=== PATIENT | male | born 1965 | race African-American/Black ===

== ENCOUNTER 2022-11-17 13:16 | Emergency (ER) | payer SELFPAY ==
[~2022-11-17] VITALS: Ht 172.7 cm; Wt 79.0 kg
[2022-11-17 13:18] VITALS: O2SAT 98
[2022-11-17] MEDS ORDERED: KETOROLAC 30MG/ML VIAL IV STA (13:31)
[2022-11-17] MEDS ORDERED: ACETAMINOPHEN 325MG TABLET PO ONE (13:45)
[2022-11-17] MEDS ORDERED: ONDANSETRON 4MG ODT PO NR (13:45)
[2022-11-17] MEDS ORDERED: ONDANSETRON 4MG ODT PO ONE (13:45)
[2022-11-17] MEDS ORDERED: AMLODIPINE 5MG TABLET PO ONE (13:45)
[2022-11-17] MEDS ORDERED: FAMOTIDINE 20MG/2ML VIAL IV ONE (13:45)
[2022-11-17] MEDS ORDERED: SODIUM CHLORIDE 0.9% 1,000 ML IV ONE (13:45)
[2022-11-17 14:04] LABS: HEMATOCRIT. 43.6 % (42.0-52.0); HEMOGLOBIN. 14.7 g/dL (14.0-18.0); MEAN CORPUSCULAR HEMOGLOBIN 32.7 pg (28.0-32.0); MEAN CORPUSCULAR VOLUME 96.9 fL (80.0-94.0); MEAN PLATELET VOLUME 9.4 fl (7.4-10.4); PLATELET 188 x1000/uL (130-400); RED BLOOD CELL COUNT 4.49 mill/uL (4.7-6.1); RED CELL DISTRIBUTION WIDTH 13.3 % (11.6-14.6)
[2022-11-17 14:08] LABS: CHLORIDE 101 mEq/L (98-107)
[2022-11-17 14:21] LABS: ETHANOL BLOOD < 10 mg/dL (-10)
[2022-11-17 14:26] LABS: PLATELET ESTIMATE NORMAL
[2022-11-17] MEDS ORDERED: ONDANSETRON HCL 4MG/2ML INJ IV ONE (14:30)
[2022-11-17] MEDS ORDERED: POTASSIUM CHLORIDE 20MEQ TABLET SR PO NR (15:00)
[2022-11-17] MEDS ORDERED: POTASSIUM CHLORIDE 20MEQ TABLET SR PO ONE (15:00)
[2022-11-17] MEDS ORDERED: KETOROLAC 15MG/ML VIAL IV NR (16:00)
[2022-11-17] MEDS ORDERED: KETOROLAC 15MG/ML VIAL IV ONE (16:00)
[2022-11-17 18:25] LABS: CLARITY URINE CLEAR (CLEAR); COLOR URINE YELLOW (YELLOW); KETONES URINE 2+ (NEGATIVE); LEUKOCYTE ESTERASE URINE NEGATIVE (NEGATIVE); NITRITE URINE NEGATIVE (NEGATIVE); OCCULT BLOOD URINE 2+ (NEGATIVE); PROTEIN URINE 2+ (NEGATIVE); SPECIFIC GRAVITY URINE 1.016 (1.005-1.030); UROBILINOGEN URINE 0.2 E.U./dL (0.2-1.0)
[2022-11-17 18:29] LABS: D-DIMER 0.56 mg/L FEU (<0.50); INR 1.2; PARTIAL THROMBOPLASTIN TIME 29.1 sec (23.4-31.0); PROTHROMBIN TIME 12.5 sec (9.6-11.0)
[2022-11-17 18:38] LABS: *AMPHETAMINES SCREEN URINE NEGATIVE (NEGATIVE); *BARBITURATES SCREEN URINE NEGATIVE (NEGATIVE); *BENZODIAZEPINES SCREEN URINE NEGATIVE (NEGATIVE); *COCAINE SCREEN URINE NEGATIVE (NEGATIVE); CANNABINOID URINE SCREEN PRESUMTIVE POSITIVE (NEGATIVE); METHADONE URINE SCREEN NEGATIVE (NEGATIVE); OPIATES URINE SCREEN NEGATIVE (NEGATIVE); PHENCYCLIDINE URINE SCREEN NEGATIVE (NEGATIVE)
[2022-11-17] MEDS ORDERED: IOHEXOL-350 100 ML BOTTLE ONE (21:05)
[2022-11-17] MEDS ORDERED: IBUP-2028 MT (21:30)
[2022-11-17 22:31] VITALS: BP 168/123; PULSE 95; RESP 12; TEMP 99
== END 2022-11-17 22:34 | disposition home or self-care (01) ==
LOC: ER 13:57
DX: K80.20 Calculus of gallbladder without cholecystitis without obstruction (principal); F12.10 Cannabis abuse, uncomplicated; R11.2 Nausea with vomiting, unspecified; R06.02 Shortness of breath; I10 Essential (primary) hypertension
CPT/HCPCS: 80053; 80305; 81003; 80320; 83880; 83690; 85025; 85379; 85610; 85730; 84484; 36415; 71045; 71275; 74176; 76705; 93005; 96361; 96374; 96375; 96376; 99285; Q9967; J3490; J1885 ×2; J2405; J7030; Z7610 ×3; G0480